=== PATIENT | female | born 1995 | race American Indian/Alaskan Native ===

== ENCOUNTER 2021-10-31 18:53 | Emergency (ER) | payer OTHER ==
[2021-10-31] MEDS ORDERED: ACETAMINOPHEN 500 MG TAB PO ONE (21:25)
[2021-10-31 21:55] LABS: Basophils % (Auto) 0.5 % (0.0-1.8); Eosinophils % (Auto) 0.3 % (0.0-4.3); Hematocrit 39.4 % (30.3-42.9); Hemoglobin 12.6 gm/dl (10.1-14.3); Lymphocytes # (Auto) 1.9 K/mm3 (1.2-5.4); Lymphocytes % (Auto) 21.2 % (13.4-35.0); Mean Corpuscular HGB Conc 32 % (30-34); Mean Corpuscular Volume 90 fl (79-97); Monocytes # (Auto) 0.7 K/mm3 (0.0-0.8); Monocytes % (Auto) 7.5 % (0.0-7.3); Platelet Count 292 K/mm3 (140-440); Red Blood Count 4.38 M/mm3 (3.65-5.03); Red Cell Distribution Width 14.2 % (13.2-15.2)
[2021-10-31 22:12] LABS: Alanine Aminotransferase 9 units/L (7-56); Blood Urea Nitrogen 13 mg/dL (7-17); Hemolysis Index 6
[2021-10-31 22:16] LABS: BUN/Creatinine Ratio 19
--- NOTE | 2021-11-01 00:52 | Ultrasound Report ---
ULTRASOUND OBSTETRIC INDICATION / CLINICAL INFORMATION: Pain, bleeding, . Moderate vaginal bleeding. Serum hCG = 5 148. - Clinical Gestational Age (GA) in weeks, days: 9, 5 TECHNIQUE: Transabdominal. COMPARISON: None available. FINDINGS: GESTATIONAL SAC: Small intrauterine fluid sac measuring 6.3 mm corresponding to 5, 2 weeks, days. Sma ll, adjacent hypoechoic area in the uterus measuring 7 x 3 x 7 mm possibly representing subchorionic hemorrhage. YOLK SAC: Not visualized. EMBRYO/FETUS: None visualized. ADNEXA: Mildly complex cyst in the right ovary measuring 1.6 cm. Left ovary not well visualized. FREE FLUID: None. ADDITIONAL FINDINGS: None. IMPRESSION: 1. Small intrauterine fluid sac possibly representing early gestational sac of 5, 2 weeks, days. No y olk sac or pole visualized. 2. Small subchorionic hemorrhage. 3. Laboratory and sonographic follow-up is recommended. Signer Name: Petra Torres MD Signed: 11/01/2021 12:47 AM Workstation Name: [id number]
[2021-11-01 01:09] LABS: Bilirubin,Urine NEG (Negative); Blood,Urine LG (Negative); Color,Urine Yellow (Yellow); Mucus,Urine FEW /HPF; Protein,Urine <15 mg/dL mg/dL (Negative); Urobilinogen,Urine < 2.0 mg/dL (<2.0)
--- NOTE | 2021-11-01 01:15 | Emergency Department Report ---
ED Female HPI - General Chief complaint: Vaginal Bleeding Stated complaint: VAGINAL BLEEDING Source: patient Mode of arrival: Ambulatory Limitations: No Limitations - History of Present Illness Initial comments: Patient is a A0 25-year-old -[place] female with past medical history of hypertension and who is approximately 5 weeks gestation presents to the ED with complaint of acute onset persistent pelvic pain with vaginal bleeding for the last 6 hours. Patient states that the pain is sharp and crampy and that it is intermittent but worse with movement. Patient denies fever, chills, dysuria, urinary frequency and urgency, chest pain, shortness of breath, nausea and vomiting and diarrhea, vaginal discharge, low back pain, traumatic injury or heavy lifting, cough or sore throat. MD Complaint: vaginal bleeding, pelvic pain -: Sudden, hour(s) (6) Location: suprapubic, other (VAGINAL ) Radiation: non-radiating Severity: moderate Severity scale (0 -10): 4 Quality: cramping, aching Consistency: constant Improves with: none Worsens with: movement Are you Now?: Yes Associated Symptoms: denies other symptoms, vaginal bleeding, abdominal pain (Suprapubic pain). denies: vaginal discharge, nausea/vomiting, fever/chills, headaches, loss of appetite, dysuria, hematuria, rash, seizure, shortness of breath, weakness, other - Related Data Sexually active: Yes : 1 Para: 0 A: 0 Previous Rx's Medication Instructions Recorded Last Taken Type Acetaminophen [Tylenol] 500 mg PO Q6HR PRN #30 tablet 11/01/21 Unknown Rx Allergies Allergy/AdvReac Type Severity Reaction Status Date / Time No Known Allergies Allergy Verified 10/31/21 20:58 ED Review of Systems ROS: Stated complaint: VAGINAL BLEEDING Other details as noted in HPI Constitutional: denies: chills, fever Eyes: denies: eye pain, eye discharge, vision change ENT: denies: ear pain, throat pain Respiratory: denies: cough, shortness of breath, wheezing Cardiovascular: denies: chest pain, palpitations Endocrine: no symptoms reported Gastrointestinal: abdominal pain (Suprapubic pain). denies: nausea, vomiting, diarrhea, hematemesis Genitourinary: abnormal menses (Vaginal bleeding). denies: urgency, dysuria, discharge Musculoskeletal: denies: back pain, joint swelling, arthralgia Skin: denies: rash, lesions Neurological: denies: headache, weakness, paresthesias Psychiatric: denies: anxiety, depression Hematological/Lymphatic: denies: easy bleeding, easy bruising ED Past Medical Hx - Past Medical History Hx Hypertension: Yes (NO LONGER TAKING MEDS) - Surgical History Past Surgical History?: No - Medications Home Medications: Home Medications Medication Instructions Recorded Confirmed Last Taken Type Acetaminophen [Tylenol] 500 mg PO Q6HR PRN #30 tablet 11/01/21 Unknown Rx ED Physical Exam - General Limitations: No Limitations General appearance: alert, in no apparent distress - Head Head exam: Present: atraumatic, normocephalic, normal inspection - Eye Eye exam: Present: normal appearance, PERRL, EOMI Pupils: Present: normal accommodation - ENT ENT exam: Present: normal exam, normal orophraynx, mucous membranes moist, TM's normal bilaterally, normal external ear exam - Neck Neck exam: Present: normal inspection, full ROM. Absent: tenderness - Respiratory Respiratory exam: Present: normal lung sounds bilaterally. Absent: respiratory distress, wheezes, rales, rhonchi, chest wall tenderness, accessory muscle use, decreased breath sounds, prolonged expiratory - Cardiovascular Cardiovascular Exam: Present: normal rhythm, tachycardia, normal heart sounds. Absent: systolic murmur, diastolic murmur, rubs, gallop - GI/Abdominal GI/Abdominal exam: Present: soft, tenderness (Palpable mild suprapubic tenderness), normal bowel sounds. Absent: guarding, hyperactive bowel sounds, hypoactive bowel sounds, organomegaly, mass - Bi-manual exam: Present: other (Pelvic exam deferred at this time) - Extremities Exam Extremities exam: Present: normal inspection, full ROM, normal capillary refill - Back Exam Back exam: Present: normal inspection, full ROM. Absent: tenderness, CVA tenderness (R), CVA tenderness (L), muscle spasm, paraspinal tenderness, vertebral tenderness, rash noted - Neurological Exam Neurological exam: Present: alert, oriented X3, CN II-XII intact, normal gait, reflexes normal - Psychiatric Psychiatric exam: Present: normal affect, normal mood, anxious - Skin Skin exam: Present: warm, dry, intact, normal color. Absent: rash ED Course Vital Signs 10/31/21 22:00 Respiratory 14 Rate ED Medical Decision Making - Lab Data Result diagrams: 10/31/21 21:38 10/31/21 21:38 - Radiology Data Radiology results: report reviewed, image reviewed [facility] [address] [place] [address] Ultrasound Report Signed Patient: JASWINDER AG MR#: [id number] 7 : 1995 Acct:[id number] Age/Sex: 25 / F ADM Date: 10/31/21 Loc: ED Attending Dr: Ordering Physician: ELISA CARL Date of Service: 10/31/21 Procedure(s): US OB <= 14 weeks fetus Accession Number(s): [id number] cc: ELISA CARL ULTRASOUND OBSTETRIC INDICATION / CLINICAL INFORMATION: Pain, bleeding, . Moderate vaginal bleeding. Serum hCG = 5148. - Clinical Gestational Age (GA) in weeks, days: 9, 5 TECHNIQUE: Transabdominal. COMPARISON: None available. FINDINGS: GESTATIONAL SAC: Small intrauterine fluid sac measuring 6.3 mm corresponding to 5, 2 weeks, days. Small, adjacent hypoechoic area in the uterus measuring 7 x 3 x 7 mm possibly representing subchorionic hemorrhage. YOLK SAC: Not visualized. EMBRYO/FETUS: None visualized. ADNEXA: Mildly complex cyst in the right ovary measuring 1.6 cm. Left ovary not well visualized. FREE FLUID: None. ADDITIONAL FINDINGS: None. IMPRESSION: 1. Small intrauterine fluid sac possibly representing early gestational sac of 5, 2 weeks, days. No yolk sac or pole visualized. 2. Small subchorionic hemorrhage. 3. Laboratory and sonographic follow-up is recommended. Signer Name: Petra Torres MD Signed: 11/01/2021 12:47 AM Workstation Name: [id number] Transcribed By: ULISES Dictated By: Colin Torres MD Electronically Authenticated By: Colin Torres MD Signed Date/Time: 11/01/2146 DD/ TD/TT: Print - Medical Decision Making This is a A0 25-year-old -[place] female with past medical history of hypertension and who is not taking any medications and who is approximately 5 weeks gestation presents to the ED with complaint of acute onset persistent pelvic pain with vaginal bleeding for the last 6 hours. Patient states that the pain is sharp and crampy and that it is intermittent but worse with movement. In the ED, patient is alert and oriented x3 and is not in any distress. Patient however anxious and tachycardic but afebrile in triage. In the ED, patient was treated for pain with Tylenol and lab test results are reviewed and showed hCG quant of 5148. The rest of the lab test results are nonactionable. Transvaginal ultrasound showed a small intrauterine fluid sac possibly representing early gestational sac of 5, 2 weeks, days. No yolk sac or pole visualized. It also showed small subchorionic hemorrhage. On reevaluation, patient felt better, pain is well controlled medication. Tachycardia also resolved. Patient was therefore discharged home and advised to maintain a complete pelvic rest, with no strenuous or physical activities or sexual activities. Patient was advised to follow-up with [facility] physician in 3 to 5 days for reevaluation or return to the ED immediately if symptoms get worse. - Differential Diagnosis Threatened miscarriage; UTI; ovarian cyst; subchorionic bleed; kidney stone Critical care attestation.: If time is entered above; I have spent that time in minutes in the direct care of this critically ill patient, excluding procedure time. ED Disposition Clinical Impression: Threatened miscarriage in early , Vaginal bleeding affecting early , Abdominal pain during in first trimester Disposition: 01 HOME / SELF CARE / HOMELESS Is pt being admited?: No Does the pt Need Aspirin: No Condition: Stable Instructions: Threatened Miscarriage, [id number], Abdominal Pain During , [id number], Vaginal Bleeding During , First Trimester, [id number] Additional Instructions: All lab test results were reviewed and are all nonactionable. Transvaginal ultrasound showed a small intrauterine fluid sac possibly representing early gestational sac of 5, 2 weeks, days. No yolk sac or pole visualized. It also showed small subchorionic hemorrhage. Therefore maintain a complete pelvic rest devoid of strenuous physical or sexual activities or heavy lifting. Take Tylenol as needed for pain and follow-up with your [facility] physician in 3 to 5 days for reevaluation. Return to the ED immediately if symptoms get worse. Prescriptions: Acetaminophen [Tylenol] 500 mg PO Q6HR PRN #30 tablet PRN Reason: Pain , Severe (7-10) Referrals: DUSTY BAUTISTA MD [Staff Physician] - 3-5 Days Forms: Work/School Release Form(ED) Time of Disposition: 02:20 Print Language: [place] CITIZEN
[2021-11-01 02:15] VITALS: BP 166/93
== END 2021-11-01 04:21 | disposition home or self-care (01) ==
LOC: ED 18:53
DX: O20.0 Threatened abortion (principal); O26.891 Other specified pregnancy related conditions, first trimester; R10.9 Unspecified abdominal pain; I10 Essential (primary) hypertension; Z3A.01 Less than 8 weeks gestation of pregnancy
CPT/HCPCS: 36415; 76801; 80053; 81001; 84702; 85025; 86900; 86901; 99284